=== PATIENT | male | born 1970 | race Caucasian/White ===

== ENCOUNTER 2016-10-01 09:13 | Emergency (ER) | payer BC, MEDICAID, OTHER ==
[2016-10-01] MEDS ORDERED: cefTRIAXone VIAL(*) 1,000 MG VIAL IM ONE ×2 (10:10)
[2016-10-01] MEDS ORDERED: Lidocaine 1%* 5 ML VIAL ONE ×2 (10:16)
--- NOTE | 2016-10-01 10:16 | ED ---
HPI Cardiac - History of Current Complaint Stated Complaint: RESPIRATORY COMPLAINT Time Seen by Provider: 10/01/16 09:58 Hx Obtained From: Patient Onset/Duration: Started Days Ago Timing: Constant Initial Severity: Mild Current Severity: Moderate Aggravating Factor(s): Deep Breaths Alleviating Factor(s): Rest Associated Signs and Symptoms: Positive: Headaches, Chills, Cough, Productive Cough. Negative: Numbness, Shortness of Breath, Hemoptysis, Abdominal Pain, Vomiting, Bloody Sputum - Allergy/Home Medications Allergies/Adverse Reactions: Allergies Allergy/AdvReac Type Severity Reaction Status Date / Time No Known Allergies Allergy Verified 09/06/14 14:49 PMH/Surg Hx/FS Hx/Imm Hx Respiratory History: Reports: Hx Pneumonia Infectious Disease History: Denies: Hx Clostridium Difficile, Hx Hepatitis, Hx Human Immunodeficiency Virus (HIV), Hx of Known/Suspected MRSA, Hx Shingles, Hx Tuberculosis, Hx Known/ Suspected VRE, Hx Known/Suspected VRSA, History Other Infectious Disease - Family History Known Family History: Negative: Respiratory Disease - Social History Occupation: Employed Full-time Lives: With Family Alcohol Use: Weekly Substance Use Type: Reports: None Smoking Status (MU): Never Smoked Tobacco Review of Systems Positive: Chills. Negative: Fever Positive: Cough. Negative: Shortness Of Breath All Other Systems Reviewed And Are Negative: Yes Physical Exam Triage Information Reviewed: Yes Vital Signs Reviewed: Yes Appearance: Positive: Well-Appearing - Frequent cough while in room but non toxic and pleasant and no increased work of breathing. Skin: Positive: Warm Head/Face: Positive: Normal Head/Face Inspection Eyes: Positive: Normal ENT: Positive: Normal ENT inspection Neck: Positive: Supple Respiratory/Lung Sounds: Positive: Breath Sounds Present, Rales. Negative: Decreased Breath Sounds - right lower rales and rhonchi. no wheezing and otherwise breathing and talking comfortably., Stridor, Tracheal Deviation, Unable to speak in full sentences Cardiovascular: Positive: Normal. Negative: Tachycardia Abdomen Description: Positive: Nontender Bowel Sounds: Positive: Present Musculoskeletal: Positive: Normal Neurological: Positive: Sensory/Motor Intact, Alert, Oriented to Person Place, Time Psychiatric: Positive: Normal Disposition - Course Course Of Treatment: right lower early pneumonia. no signs of sepsis or increased work of breathing. we will aggressively treat with OTC meds and antibiotics. - Differential Dx - Cardiopulmonary Differential Diagnoses - Cardiopulmonary: Acute Coronary, Acute Dyspnea, Airway Obstruction, Aortic Aneurysm, Aortic Stenosis, Aspiration, Asthma, Atrial Fibrillation, Atrial Flutter, Bronchitis, Cardiomyopathy, Chest Wall Pain, Hypoxia, Lower Resp Infection, Mitral Valve Prolapse, Myocardial Infarction, Myocarditis, Panic Disorder, Paroxysmal SVT, Paroxysmal VT, Pulmonary Edema, Pulmonary Embolism - Diagnoses Provider Diagnoses: Pneumonia Discharge - Discharge Plan Condition: Good Disposition: HOME Patient Education Materials: Bacterial Pneumonia (ED) Forms: *Work Release Referrals: Milton Martins MD [Primary Care Provider] - 3 Days
[2016-10-01 10:20] VITALS: BP 103/68
== END 2016-10-01 10:54 | disposition home or self-care (01) ==
LOC: UCCORT 09:13
DX: J18.9 Pneumonia, unspecified organism (principal)
CPT/HCPCS: 96372; 99212; G0463; J0696

== ENCOUNTER 2016-10-30 15:08 | Emergency (ER) | payer MEDICAID, OTHER ==
[2016-10-30 18:15] VITALS: BP 136/80
--- NOTE | 2016-10-30 18:24 | UC ---
Skin Complaint HPI - HPI Summary HPI Summary: pt c/o of having a syncopal episode at work today, falling and breaking left front tooth and putting tooth through lower lip. Pt denies headache, change of vision, one sided weakness, loss of bowel or bladder control. - History of Current Complaint Chief Complaint: UCGeneralIllness Time Seen by Provider: 10/30/16 17:55 Stated Complaint: CUT LOWER LIP Hx Obtained From: Patient Onset/Duration: Sudden Onset Skin Exposure Onset/Duration: Hours Ago Onset Severity: Mild Current Severity: None Aggravating: Touch Associated Signs & Symptoms: Positive: Negative - Allergy/Home Medications Allergies/Adverse Reactions: Allergies Allergy/AdvReac Type Severity Reaction Status Date / Time No Known Allergies Allergy Verified 10/30/16 18:00 Home Medications: Home Medications NK [No Home Medications Reported] 10/30/16 [History Confirmed 10/30/16] Review of Systems Constitutional: Negative Skin: Other - laceration Eyes: Negative ENT: Negative Respiratory: Negative Cardiovascular: Negative Gastrointestinal: Negative Genitourinary: Negative Motor: Negative Neurovascular: Negative Musculoskeletal: Negative Neurological: Negative Psychological: Negative All Other Systems Reviewed And Are Negative: Yes PMH/Surg Hx/FS Hx/Imm Hx Previously Healthy: Yes Respiratory History Of: Reports: Pneumonia - Surgical History Surgical History: None - Family History Known Family History: Negative: Respiratory Disease - Social History Lives: With Family Alcohol Use: Rare Substance Use Type: None Smoking Status (MU): Never Smoked Tobacco Type: Cigars Length of Time of Smoking/Using Tobacco: 5 YRS Have You Smoked in the Last Year: Yes Physical Exam Triage Information Reviewed: Yes Appearance: Well-Appearing Vital Signs: Initial Vital Signs Temp 99.2 F 10/30/16 18:01 Pulse 83 10/30/16 18:01 Resp 16 10/30/16 18:01 BP 136/80 10/30/16 18:01 Pulse Ox 100 10/30/16 18:01 Vital Signs Reviewed: Yes Eye Exam: Normal ENT Exam: Normal Neck exam: Normal Respiratory Exam: Normal Cardiovascular Exam: Normal Abdominal Exam: Normal Musculoskeletal Exam: Normal Neurological Exam: Normal Psychological Exam: Normal Skin Exam: Other - laceration lower lip Laceration Repair - Laceration Repair 2 Description: Linear Laceration Size After Repair: Length (cm) - 5 mm, Width (mm) - 1, Depth (mm) - through lower lip Modified For Repair: No Irrigation With Pressure Irrigation Device: No Closure Material: Skin Adhesive Closure Method: Single Layer Suture Of: Skin Course/Dx - Differential Diagnoses - Skin Complaint Differential Diagnoses: Other - syncope - Diagnoses Provider Diagnoses: laceration. syncope Discharge - Discharge Plan Condition: Stable Disposition: HOME Patient Education Materials: Syncope (ED), Skin Adhesive Care (ED) Referrals: Milton Martins MD [Primary Care Provider] -
== END 2016-10-30 18:59 | disposition home or self-care (01) ==
LOC: UCCORT 15:08
DX: S01.511A Laceration without foreign body of lip, initial encounter (principal); R55 Syncope and collapse; W19.XXXA Unspecified fall, initial encounter; Y92.9 Unspecified place or not applicable; Y99.0 Civilian activity done for income or pay
CPT/HCPCS: 99211; G0463

== ENCOUNTER 2017-05-10 12:16 | Emergency (ER) | payer OTHER ==
[2017-05-10 12:59] VITALS: BP 120/72
--- NOTE | 2017-05-10 13:10 | UC ---
Lower Extremity/Ankle HPI - HPI Summary HPI Summary: 250 lb object was being carried by him and a friend He dropped his end and it fell running down left melchor and twisting ankle and landing on his steel toed boot unwilling to try bearing wt declines analgesic - History of Current Complaint Chief Complaint: UCLowerExtremity Stated Complaint: LEFT FOOT INJURY Time Seen by Provider: 05/10/17 12:52 Hx Obtained From: Patient Onset/Duration: Sudden Onset, Lasting Hours Severity Initially: Moderate Severity Currently: Moderate Pain Intensity: 6 Pain Scale Used: 0-10 Numeric Aggravating Factor(s): Standing, Ambulation Alleviating Factor(s): Rest, Elevation Able to Bear Weight: No - not attempted - Allergies/Home Medications Allergies/Adverse Reactions: Allergies Allergy/AdvReac Type Severity Reaction Status Date / Time No Known Allergies Allergy Verified 05/10/17 12:59 Home Medications: Home Medications Ibuprofen TAB* [Advil TAB*] 400 mg PO ONCE PRN 05/10/17 [History Confirmed 05/10] PMH/Surg Hx/FS Hx/Imm Hx Previously Healthy: Yes - Surgical History Surgical History: None - Family History Known Family History: Positive: Hypertension Negative: Respiratory Disease - Social History Alcohol Use: Occasionally Substance Use Type: None Smoking Status (MU): Current Some Day Smoker Type: Cigars Length of Time of Smoking/Using Tobacco: 5 YRS Have You Smoked in the Last Year: Yes - Immunization History Most Recent Tetanus Shot: about 2011 Review of Systems Constitutional: Negative Skin: Bruising Eyes: Negative ENT: Negative Respiratory: Negative Cardiovascular: Negative Gastrointestinal: Negative Genitourinary: Negative Motor: Negative Neurovascular: Negative Musculoskeletal: Arthralgia Neurological: Negative Psychological: Negative All Other Systems Reviewed And Are Negative: Yes Physical Exam Triage Information Reviewed: Yes Appearance: Well-Appearing, No Pain Distress, Well-Nourished Vital Signs: Initial Vital Signs Temp 99.1 F 05/10/17 12:51 Pulse 63 05/10/17 12:51 Resp 12 05/10/17 12:51 BP 120/72 05/10/17 12:51 Eyes: Positive: Conjunctiva Clear ENT: Negative: Hearing grossly normal, Nasal congestion, Nasal drainage, Tonsillar exudate, Trismus, Muffled/hoarse voice Neck: Positive: Supple, Nontender, No Lymphadenopathy Respiratory: Positive: Lungs clear, Normal breath sounds, No respiratory distress, No accessory muscle use Cardiovascular: Positive: RRR, No Murmur Abdomen Description: Positive: Nontender, No Organomegaly, Soft. Negative: CVA Tenderness (R), CVA Tenderness (L) Musculoskeletal: Positive: ROM Limited @, Edema @ Neurological Exam: Normal Neurological: Positive: Alert Psychological Exam: Normal Skin Exam: Other - melchor abrasion Skin: Positive: Other Lower Extremity Course/Dx - Differential Dx/Diagnosis Provider Diagnoses: left melchor contusion/abrasion. left lateral ankle sprain. medial left talus avulsion fracture. left foot contusion Discharge - Discharge Plan Condition: Stable Disposition: HOME Patient Education Materials: Ankle Sprain (ED), Contusion in Adults (ED), Ice Pack Application (ED), Avulsion Fracture (ED) Forms: *Work Release Referrals: Yong Jones MD [Medical Doctor] - Milton Martins MD [Primary Care Provider] - Additional Instructions: rest elevate ice CAM boot crutches with non wt bearing advil or aleve suspect an avulsion or chip fracture of medial talus Images Feet (Multiple View): 1 - swollen/tender 2 - swollen/tender 3 - tender Front/Back of Body, Lg ([place]): 1 - abrasion
--- NOTE | 2017-05-10 13:37 | RAD ---
INDICATION: Left lower leg injury COMPARISON: None TECHNIQUE: AP and lateral views were obtained. FINDINGS: The bony structures, joint spaces, and soft tissues are normal for age. IMPRESSION: NEGATIVE EXAMINATION
--- NOTE | 2017-05-10 13:38 | RAD ---
HISTORY: Left leg injury COMPARISONS: September 15, 2014 VIEWS: 3, Frontal, lateral, and oblique views of the left foot FINDINGS: BONE DENSITY: Normal. BONES: There is no displaced fracture. JOINTS: There is no arthropathy. ALIGNMENT: There is no dislocation. SOFT TISSUES: Unremarkable. OTHER FINDINGS: None. IMPRESSION: NO ACUTE OSSEOUS INJURY. IF SYMPTOMS PERSIST, RECOMMEND REPEAT IMAGING.
--- NOTE | 2017-05-10 13:41 | RAD ---
INDICATION: Left ankle injury. TECHNIQUE: 3 views of the left ankle were obtained. FINDINGS: There is diffuse soft tissue swelling. The bones are in normal alignment. There are 2 small bony densities present along the medial articular surface of the talus suggestive of small fracture fragments. Joint spaces appear maintained. IMPRESSION: FINDINGS SUGGESTIVE OF SMALL FRACTURE FRAGMENTS ARISING FROM THE MEDIAL TALUS.
== END 2017-05-10 14:35 | disposition home or self-care (01) ==
LOC: UCCORT 12:16
DX: S80.12XA Contusion of left lower leg, initial encounter (principal); X50.0XXA Overexertion from strenuous movement or load, initial encounter; S93.402A Sprain of unspecified ligament of left ankle, initial encounter; S92.152A Displaced avulsion fracture (chip fracture) of left talus, initial encounter for closed fracture; S90.32XA Contusion of left foot, initial encounter; W19.XXXA Unspecified fall, initial encounter; F17.200 Nicotine dependence, unspecified, uncomplicated
CPT/HCPCS: 99213; G0463

== ENCOUNTER 2019-01-08 09:08 | Emergency (ER) | payer OTHER ==
[2019-01-08 09:26] VITALS: BP 122/89
--- NOTE | 2019-01-08 09:58 | UC ---
Respiratory Complaint HPI - HPI Summary HPI Summary: 48-year-old male comes in with a chief complaint of 8 days of upper respiratory tract infection symptoms. It's been on a runny nose. Now he has sinus pressure. Recently she's developed a cough and chest congestion. He can feel the congestion in his lungs. His sputum and rhinorrhea or yellow. He had chills earlier in the week he does not have any recent fevers. The entrance [id number] medicines which does not help very much with the symptoms. He' s had pneumonia in the past and this is starting to remind him of when he had pneumonia. Denies any wheezing or history of asthma. He is not a smoker. - History of Current Complaint Chief Complaint: UCRespiratory Stated Complaint: COUGH,SORE THROAT,CHILLS Time Seen by Provider: 01/08/19 09:36 Pain Intensity: 5 - Allergies/Home Medications Allergies/Adverse Reactions: Allergies Allergy/AdvReac Type Severity Reaction Status Date / Time No Known Allergies Allergy Verified 01/08/19 09:20 Home Medications: Home Medications Chlorpheniramine/Dextromethorp [Coricidin Hbp Cough & Col] 2 tab PO Q6H PRN [History Confirmed 01/08/19] PMH/Surg Hx/FS Hx/Imm Hx Previously Healthy: Yes Respiratory History: Pneumonia - Surgical History Surgical History: None - Family History Known Family History: Positive: Hypertension Negative: Respiratory Disease - Social History Alcohol Use: None Substance Use Type: None Smoking Status (MU): Current Some Day Smoker Type: Cigars Length of Time of Smoking/Using Tobacco: 5 YRS Have You Smoked in the Last Year: Yes - Immunization History Most Recent Tetanus Shot: about 2011 Review of Systems All Other Systems Reviewed And Are Negative: Yes Constitutional: Positive: Chills Skin: Positive: Negative Eyes: Positive: Negative ENT: Positive: Nasal Discharge, Sinus Congestion, Sinus Pain/Tenderness Respiratory: Positive: Cough, Other - SEE HPI Cardiovascular: Positive: Negative Gastrointestinal: Positive: Negative Motor: Positive: Negative Neurovascular: Positive: Negative Musculoskeletal: Positive: Negative Neurological: Positive: Negative Psychological: Positive: Negative Is Patient Immunocompromised?: No Physical Exam Triage Information Reviewed: Yes Appearance: No Pain Distress, Well-Nourished, Ill-Appearing - MILD Vital Signs: Initial Vital Signs Temp 98.2 F 01/08/19 09:21 Pulse 106 01/08/19 09:21 Resp 16 01/08/19 09:21 BP 122/89 01/08/19 09:21 Pulse Ox 98 01/08/19 09:21 Vital Signs Reviewed: Yes Eye Exam: Normal Eyes: Positive: Conjunctiva Clear ENT: Positive: Pharyngeal erythema, Nasal congestion, Nasal drainage, TMs normal Neck: Positive: Supple Respiratory: Positive: No respiratory distress, No accessory muscle use, Rhonchi. Negative: Wheezing Cardiovascular: Positive: RRR Musculoskeletal Exam: Normal Musculoskeletal: Positive: Strength Intact, ROM Intact Neurological Exam: Normal Neurological: Positive: Alert, Muscle Tone Normal Psychological Exam: Normal Psychological: Positive: Age Appropriate Behavior Skin Exam: Normal Respiratory Course/Dx - Course Course Of Treatment: DISCUSSED VIRAL VERSES BACTERIAL INFECTION AND THE ROLE OF ANTIBIOTICS. THE PATIENT WISHES TO BE ON ANTIBIOTICS AT THIS TIME. - Differential Dx/Diagnosis Provider Diagnosis: Sinusitis, Bronchitis Discharge - Sign-Out/Discharge Documenting (check all that apply): Patient Departure All imaging exams completed and their final reports reviewed: No Studies - Discharge Plan Condition: Stable Disposition: HOME Prescriptions: Benzonatate CAP* [Tessalon 100 MG CAP*] 100 mg PO TID PRN #20 cap PRN Reason: Cough DOXYcycline CAP(*) [DOXYcycline 100MG CAP(*)] 100 mg PO BID #20 cap Patient Education Materials: Sinusitis (ED), Acute Bronchitis (ED) Referrals: Milton Martins MD [Primary Care Provider] - Additional Instructions: FOLLOW UP WITH YOUR DOCTOR IF NOT COMPLETELY IMPROVED. TRY A COUGH MEDICINE WITH GUAIFENESIN (THINS SECRETIONS) AND DEXTROMETHORPHAN ( COUGH SUPPRESSION). GET REEVALUATED SOONER FOR WORSENING OF YOUR CONDITION OR QUESTIONS OR CONCERNS. - Billing Disposition and Condition Condition: STABLE Disposition: Home
== END 2019-01-08 10:04 | disposition home or self-care (01) ==
LOC: UCCORT 09:08
DX: J32.9 Chronic sinusitis, unspecified (principal); J40 Bronchitis, not specified as acute or chronic; F17.290 Nicotine dependence, other tobacco product, uncomplicated; Z87.01 Personal history of pneumonia (recurrent)
CPT/HCPCS: 99212; G0463